=== PATIENT | male | born 1975 | race Two or more races ===

== ENCOUNTER 2018-08-06 15:13 | Emergency (ER) | payer MEDICAID ==
[~2018-08-06] VITALS: Ht 167.6 cm; Wt 90.3 kg
--- NOTE | 2018-08-06 15:17 | NUR ---
PT BIB SELF C/O LEFT ARM LACERATION BY THE SKILLSAW, PT IS AAXO4, NOT IN RESPIRATORY DISTRESS, V/S STABLE, KEPT RESTED AND COMFORTABLE, WILL CONTINUE TO MONITOR.
--- NOTE | 2018-08-06 15:18 | NUR ---
WOUND CLEANING DONE BY FASHION DESIGN PROFESSOR.
--- NOTE | 2018-08-06 15:20 | NUR ---
SEEN AND EXAMINED BY SAVANNAH CURTIS.
[2018-08-06] MEDS ORDERED: ONDANSETRON HCL/PF 4 MG/2 ML VIAL ONE (15:24)
[2018-08-06] MEDS ORDERED: MORPHINE SULFATE INJ 4 MG/ML DISP.SYRIN ONE (15:24)
[2018-08-06] MEDS ORDERED: TDAP [DIPH/PERTUSSIS/TET] 0.5 ML VIAL IM ONE ×2 (15:26→15:30)
[2018-08-06] MEDS ORDERED: ONDANSETRON HCL/PF 4 MG/2 ML VIAL IVP ONE (15:30)
[2018-08-06] MEDS ORDERED: MORPHINE SULFATE INJ 2 MG/ML DISP.SYRIN IV ONE (15:30)
[2018-08-06] MEDS ORDERED: IV NS 0.9% 1,000 ML BAG IV ONE (15:30)
[2018-08-06] MEDS ORDERED: CEFAZOLIN 1 GM in IV D5W 50 ML IV ONE (15:30)
--- NOTE | 2018-08-06 15:40 | NUR ---
IV ACCESS OBTAINED ON RFA 20G. BLOOD DRAWN AND GIVEN TO TECH.
[2018-08-06 15:44] LABS: BASOPHILS # (AUTO) 0.1 /CMM (0.0-0.2); BASOPHILS % (AUTO) 1.4 % (0.0-2.0); EOSINOPHILS % (AUTO) 3.2 % (0.0-6.0); HEMATOCRIT 41 % (39-51); HEMOGLOBIN 14.1 g/dL (13.5-17.5); LYMPHOCYTES # (AUTO) 2.6 /CMM (0.8-4.8); LYMPHOCYTES % (AUTO) 34.4 % (20.0-44.0); MEAN CORPUSCULAR HGB CONC 35 g/dl (31.0-36.0); MEAN CORPUSCULAR VOLUME 85 fL (80-96); MONOCYTES # (AUTO) 0.5 /CMM (0.1-1.30); MONOCYTES % (AUTO) 7.2 % (2.0-12.0); NEUTROPHILS # (AUTO) 4.1 /CMM (1.8-8.9); NEUTROPHILS % (AUTO) 53.8 % (43.0-81.0); PLATELET COUNT (AUTO) 161 /CMM (150-450); RED BLOOD CELL COUNT(AUTO) 4.84 MIL/uL (4.5-6.0); WHITE BLOOD COUNT (AUTO) 7.5 K/uL (4.3-11.0)
--- NOTE | 2018-08-06 15:45 | NUR ---
EKG AT BEDSIDE BEING DOEN BY TECH
--- NOTE | 2018-08-06 15:48 | NUR ---
CALLED ER TO FIND OUT UPDATE ON . LEFT A CALL BACK NUMBER. JASPER
--- NOTE | 2018-08-06 15:59 | NUR ---
CALLED [facility] TO HAVE X-RAY READ.
[2018-08-06 16:06] LABS: BILIRUBIN,TOTAL 0.3 mg/dL (0.2-1.0); CALCIUM, SERUM 9.1 mg/dL (8.5-10.1)
--- NOTE | 2018-08-06 16:08 | NUR ---
CALLED [facility]. 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
[2018-08-06 16:19] LABS: ALBUMIN 4.2 g/dL (3.4-5.0); BILIRUBIN,DIRECT 0.1 mg/dL (0.0-0.2); CREATININE 0.9 mg/dL (0.6-1.3); POTASSIUM 3.7 mmol/L (3.5-5.1)
[2018-08-06] MEDS ORDERED: LIDOCAINE 1%-EPI 1:100,000 20 ML VIAL ONE (17:05)
--- NOTE | 2018-08-06 17:59 | NUR ---
SUTURING DONE BY SAVANNAH CURTIS.
--- NOTE | 2018-08-06 18:30 | NUR ---
IV removed. Catheter intact and site benign. Pressure and 4x4 applied to site. No bleeding noted. Patient discharged to home in stable condition. Written and verbal after care instructions given. Patient verbalizes understanding of instruction.
[2018-08-06 19:22] VITALS: BP 127/81
== END 2018-08-06 19:24 | disposition home or self-care (01) ==
LOC: ER 15:13
DX: S51.812A Laceration without foreign body of left forearm, initial encounter (principal); Z23 Encounter for immunization; W31.2XXA Contact with powered woodworking and forming machines, initial encounter; Y93.89 Activity, other specified; Y92.89 Other specified places as the place of occurrence of the external cause; Y99.8 Other external cause status
CPT/HCPCS: 12004; 36415; 73090; 80048; 80076; 85025; 90471; 90715; 93005; 96365; 96375; 99284; A6402 ×2; A6403 ×2; J0690; J2270; J2405; J3490; J7030; J7060